=== PATIENT | female | born 1960 | race Caucasian/White ===

== ENCOUNTER → 2021-10-30 13:51 | Outpatient (CLI) | payer BC, SELFPAY ==
--- NOTE | ~2021-10-30 | US_ITS ---
US thyroid INDICATION: Thyroid nodule TECHNIQUE: Real-time sonographic images of the thyroid gland were obtained. COMPARISON: CT dated 07/05/2012 FINDINGS: The right thyroid lobe measures 4.4 x 1.1 x 1.2 cm. The left thyroid lobe measures 4.2 x 1 x 1.3 cm. There is normal echotexture and echogenicity throughout the thyroid gland. No discrete nod ules identified. Normal vascular flow is present. IMPRESSION: 1. Normal thyroid without discrete nodule or abnormal vascularity. Reviewed, dictated and finalized at location A.
== END ==
PROVIDERS: PCP Internal Medicine; Visit Provider Otolaryngology
DX: E04.1 Nontoxic single thyroid nodule (principal)
CPT/HCPCS: 76536

== ENCOUNTER 2023-07-12 12:43 | Outpatient (CLI) | payer BC, SELFPAY ==
--- NOTE | ~2023-07-12 | US_ITS ---
Pelvic ultrasound. Clinical History: Pelvic pain Technique: Realtime transabdominal and transvaginal scanning of the pelvis was performed. Color flow Doppler and Doppler spectral analysis were performed. Findings: The uterus is anteverted. The endometrial stripe has a thickness of 4 mm. No focal mass is identified. The right ovary measures 1.6 x 1.6 x 2.0 cm. No significant right ovarian or adnexal mass is seen. The left ovary measures 2.0 x 1.1 x 1.7 cm. No significant left ovarian or adnexal mass is seen. No distinct evidence for torsion. There is no evidence of free fluid in the cul de sac. Impression: Unremarkable pelvic ultrasound. Reviewed, dictated and finalized at location . Impression: Unremarkable pelvic ultrasound.
== END 2023-07-12 12:44 ==
PROVIDERS: PCP Internal Medicine; Visit Provider Nurse Practitioner
DX: R10.2 Pelvic and perineal pain (principal)
CPT/HCPCS: 76856

== ENCOUNTER 2023-07-29 09:43 | Outpatient (CLI) | payer BC, SELFPAY ==
--- NOTE | ~2023-07-29 | US_ITS ---
US retroperitoneal comp 07/29/2023 10:34 Procedure: Realtime transabdominal ultrasound of the kidneys and bladder. Indication: Incomplete bladder emptying Comparison: No prior studies for comparison. Findings: Renal echotexture is normal bilaterally without hydronephrosis, contour deforming mass or r enal calculus. The right kidney measures 9.3 cm and left kidney measures 10.7 cm. Bladder within nor mal limits. Prevoid volume 398 cc. Post void volume 5 cc. Impression: 1: Unremarkable renal ultrasound. No stones, masses or hydronephrosis. Reviewed, dictated and finalized at location B. Impression: 1: Unremarkable renal ultrasound. No stones, masses or hydronephrosis.
== END 2023-07-29 09:44 ==
PROVIDERS: PCP Internal Medicine
DX: R33.9 Retention of urine, unspecified (principal)
CPT/HCPCS: 76770